=== PATIENT | female | born 1985 | race Caucasian/White ===

== ENCOUNTER → 2016-08-16 14:05 | Observation (INO) ==
--- NOTE | 2016-08-15 16:01 | General Surg History&Physical ---
History of Present Illness Patient information: Note initiated : 08/15/16 at 4:00 pm Service Date, if different from initiated Date: [] Patient: Lois Ortiz 30 y/o F admitted on 08/15/16 for Right Phneumothorax . Chief Complaint: [] HPI: Ms. Ortiz is a 30 year old F Medications and Allergies Home Medications Medication Instructions Recorded Confirmed Type Meperidine [Demerol] 50 mg PO Q4 #60 tab 07/25/16 08/12/16 Rx Promethazine [Phenergan] 25 mg PO Q4HP PRN #30 tab 07/25/16 08/12/16 Rx piperacillin-tazobactam 3.375 gram 3.375 g IV Q6H #50 ml 08/15/16 08/15/16 Rx intravenous solution Allergies Allergy/AdvReac Type Severity Reaction Status Date / Time clindamycin Allergy Severe Other Verified 08/15/16 14:58 Assessment and Plan (1) Pneumothorax, post biopsy, right Status: Acute (2) Bacterial liver abscess Status: Acute
[2016-08-15] MEDS: HYDROmorphone 2 MG/ML SYRINGE IV PRN ×3 (16:40→22:02)
[2016-08-15] MEDS: ONDANSETRON 4 MG/2 ML VIAL IV PRN ×2 (17:00→21:16)
[2016-08-15] MEDS: PIPERACILLIN SODIUM/TAZOBACTAM 3.375 GM in DEXTROSE 5% IN WATER 50 ML IV SCH ×2 (19:13→23:36)
[2016-08-15] MEDS: 0.9 % SODIUM CHLORIDE 10 ML SYRINGE IV SCH (22:05)
[2016-08-16] MEDS: HYDROmorphone 2 MG/ML SYRINGE IV PRN ×3 (01:38→10:11)
[2016-08-16] MEDS: PIPERACILLIN SODIUM/TAZOBACTAM 3.375 GM in DEXTROSE 5% IN WATER 50 ML IV SCH ×2 (05:31→11:44)
[2016-08-16] MEDS: 0.9 % SODIUM CHLORIDE 10 ML SYRINGE IV SCH (05:33)
[2016-08-16] MEDS: ONDANSETRON 4 MG/2 ML VIAL IV PRN ×2 (06:57→11:09)
--- NOTE | 2016-08-16 07:05 | XRay Report ---
CLINICAL INFORMATION: Liver abscess. Status post percutaneous drainage. The pleural space was crossed during this procedure with a very small pneumothorax. COMPARISON: Previous chest x-rays dated 08/15/2016 FINDINGS: No change in position of right-sided percutaneous drainage catheter. No detectable right pneumothorax. There is mild right basilar volume loss or infiltrate. Right hemidiaphragm is mildly elevated, unchanged. Continued radiographic follow-up recommended. Left lung is clear. IMPRESSION: 1. No right pneumothorax. 2. Mild right basilar volume loss or infiltrate. Continued follow-up recommended. Interpreted and Authenticated by: Nehemias Velasco 08/16/16
[2016-08-16 07:29] LABS: Basophils # (Auto) 0 K/mcL (0.0-0.3); Basophils % (Auto) 0.4 % (0.0-2.0); Eosinophils # (Auto) 0 K/mcL (0.0-0.7); Eosinophils % (Auto) 0.2 % (0.0-7.0); Granulocytes % (Auto) 80.9 % (38.0-78.0); Lymphocytes # (Auto) 1.6 K/mcL (1.5-4.8); Lymphocytes % (Auto) 13.3 % (15.5-49.0); Mean Cell Volume 82.4 fL (80.0-100.0); Mean Corpuscular HGB Conc 34.5 g/dL (31.0-36.0); Mean Corpuscular Hemoglobin 28.4 pg (26.0-34.0); Monocytes # (Auto) 0.6 K/mcL (0.1-0.9); Monocytes % (Auto) 5.2 % (1.0-12.0); Platelet Count 407 K/mcL (140-440); RBC 4.09 M/mcL (4.00-5.20); Red Cell Distribution Width 13.7 % (11.5-14.5)
[2016-08-16 07:40] LABS: ALT/SGPT 52 U/l (0-40); Albumin 3.5 gm/dL (3.2-5.2); Albumin/Globulin Ratio 1.2 (1.0-2.3); Alkaline Phosphatase 165 U/L (39-117); Bilirubin,Direct < 0.2 mg/dL (0.0-0.3); Blood Urea Nitrogen 11 mg/dl (6-20); Gamma Glutamyl Transpeptidase 134 U/L (5-36); Magnesium 2.4 mg/dL (1.6-2.5); Uric Acid 2.7 mg/dL (2.5-8.0)
--- NOTE | 2016-08-16 12:05 | General Surgery Progress Note ---
Subjective Patient reports: feels better, still having pain, tolerating a regular diet, nausea, afebrile Narrative: Note initiated : 08/16/16 at 12:02 pm Service Date, if different from initiated Date: [] Patient: Lois Ortiz 30 y/o F admitted on 08/15/16 for Right Phneumothorax . Chief Complaint: [PATIENT FEELS MUCH BETTER. SHE HAS MUCH LESS SPLINTING. SHE IS TAKING FULL DEEP BREATHS. HER PAIN IS BETTER CONTROLLED.] Objective Temp Pulse Resp BP Pulse Ox 98.3 F 73 16 103/80 98 08/16/16 11:21 08/16/16 03:44 08/16/16 11:21 08/16/16 11:21 08/16/16 11:21 - Additional Data Intake & Output - Last 24 hours: Intake & Output 08/14/16 08/15/16 08/16/16 08/17/16 05:59 05:59 05:59 05:59 Intake Total 400 / 400 290 / 290 Output Total 304 / 304 Balance 96 / 96 290 / 290 Weight 163 lb - General physical appearance moderate distress, moderate pain - Eyes PERRL - ENT no congestion - Neck no venous distension - Respiratory clear to auscultation, other (MILD SPLINTING ON THE RIGHT.) - Cardiovascular Cardiovascular exam: Present: normal rate and rhythm, RRR, +S1, +S2. Absent: JVD - Abdomen soft, non tender - Integumentary no rash, no growths, no abnormal pigmentation - Neurologic normal coordination, normal sensation - Musculoskeletal normal gait, normal posture - Psychiatric oriented to time, oriented to person, oriented to place, speech is normal, memory intact - Labs 08/16/16 05:55 08/16/16 05:55 Diabetes panel 08/16/16 Range/Units 05:55 Sodium 135 (133-145) mmol/L Potassium 3.9 (3.3-5.1) mmol/L Chloride 99 (96-108) mmol/L Carbon Dioxide 25 (22-30) mmol/L BUN 11 (6-20) mg/dl Creatinine 0.6 (0.6-1.1) mg/dl Glucose 106 H (70-105) mg/dL Calcium 8.6 (8.6-10.4) mg/dl AST 15 (0-37) U/l ALT 52 H (0-40) U/l Alkaline Phosphatase 165 H (39-117) U/L Total Protein 6.5 (5.9-8.4) gm/dL Albumin 3.5 (3.2-5.2) gm/dL Triglycerides 49 (<150) mg/dl Calcium panel 08/16/16 Range/Units 05:55 Calcium 8.6 (8.6-10.4) mg/dl Phosphorus 3.3 (2.7-4.5) mg/dL Albumin 3.5 (3.2-5.2) gm/dL Pituitary panel 08/16/16 Range/Units 05:55 Sodium 135 (133-145) mmol/L Potassium 3.9 (3.3-5.1) mmol/L Chloride 99 (96-108) mmol/L Carbon Dioxide 25 (22-30) mmol/L BUN 11 (6-20) mg/dl Creatinine 0.6 (0.6-1.1) mg/dl Glucose 106 H (70-105) mg/dL Calcium 8.6 (8.6-10.4) mg/dl Adrenal panel 08/16/16 Range/Units 05:55 Sodium 135 (133-145) mmol/L Potassium 3.9 (3.3-5.1) mmol/L Chloride 99 (96-108) mmol/L Carbon Dioxide 25 (22-30) mmol/L BUN 11 (6-20) mg/dl Creatinine 0.6 (0.6-1.1) mg/dl Glucose 106 H (70-105) mg/dL Calcium 8.6 (8.6-10.4) mg/dl Total Bilirubin 0.9 (0.0-1.0) mg/dL AST 15 (0-37) U/l ALT 52 H (0-40) U/l Alkaline Phosphatase 165 H (39-117) U/L Total Protein 6.5 (5.9-8.4) gm/dL Albumin 3.5 (3.2-5.2) gm/dL - Imaging Chest x-ray: report reviewed, image reviewed Assessment and Plan (1) Pneumothorax, post biopsy, right Status: Acute Assessment and plan: PATIENT IS STABLE FOR DISCHARGE WILL F/U IN THE OFFFICE ON MONDAY . Current Visit: Yes (2) Bacterial liver abscess Status: Acute Current Visit: Yes - Time Spent With Patient Total time spent is greater than 50% in coordination of care (as documented) at patient's floor/unit and/or counseling patient:
[~2016-08-16 14:05] MED LIST: 0.9 % SODIUM CHLORIDE 1,000 ML IV SCH; ACETAMINOPHEN 1,000 MG/100 ML BOTTLE IV PRN; ALPRAZolam 0.5 MG TABLET PO PRN; HYDROcodone/APAP 5/325MG TABLET PO PRN
== END | disposition home or self-care (01) ==
LOC: MEDSUR
PROVIDERS: ADMIT Family Medicine Adult Medicine; ATTEND Family Medicine Adult Medicine

== ENCOUNTER 2016-08-22 14:40 | Inpatient (IN) ==
[2016-08-22] MEDS ORDERED: ACETAMINOPHEN 325 MG TABLET PO PRN (16:00)
[2016-08-22] MEDS ORDERED: 0.9 % SODIUM CHLORIDE 1,000 ML IV SCH (16:15)
[2016-08-22] MEDS ORDERED: VANCOMYCIN 1,000 MG in 0.9 % SODIUM CHLORIDE 250 ML IV ONE (17:00)
[2016-08-22] MEDS: VANCOMYCIN 1,000 MG in 0.9 % SODIUM CHLORIDE 250 ML IV SCH (17:01)
[2016-08-22 17:12] LABS: ALT/SGPT 23 U/l (0-40); Albumin 3.6 gm/dL (3.2-5.2); Albumin/Globulin Ratio 0.9 (1.0-2.3); Alkaline Phosphatase 168 U/L (39-117); Bilirubin,Direct < 0.2 mg/dL (0.0-0.3); Blood Urea Nitrogen 3 mg/dl (6-20); C-Reactive Protein 18.9 mg/dl (0.0-0.8); Gamma Glutamyl Transpeptidase 119 U/L (5-36); Magnesium 2.2 mg/dL (1.6-2.5); Uric Acid 4.3 mg/dL (2.5-8.0)
[2016-08-22] MEDS: ONDANSETRON 4 MG/2 ML VIAL IV PRN (17:19)
[2016-08-22] MEDS: oxyCODONE/APAP 5/325MG TABLET PO PRN ×2 (17:24→20:36)
[2016-08-22] MEDS: ZOLPIDEM 5 MG TABLET PO PRN (20:37)
[2016-08-22] MEDS: FAMOTIDINE 20 MG TABLET PO SCH (20:37)
[2016-08-22] MEDS: DOCUSATE SODIUM 100 MG CAPSULE PO SCH (20:37)
[2016-08-22] MEDS: ALPRAZolam 0.5 MG TABLET PO PRN (21:29)
[2016-08-22] MEDS: 0.9 % SODIUM CHLORIDE 10 ML SYRINGE IV SCH (22:10)
[2016-08-23] MEDS: oxyCODONE/APAP 5/325MG TABLET PO PRN ×6 (05:02→23:50)
[2016-08-23] MEDS: VANCOMYCIN 1,000 MG in 0.9 % SODIUM CHLORIDE 250 ML IV SCH ×2 (05:03→18:04)
[2016-08-23] MEDS: 0.9 % SODIUM CHLORIDE 10 ML SYRINGE IV SCH ×3 (05:05→20:08)
[2016-08-23 07:01] LABS: Basophils # (Auto) 0 K/mcL (0.0-0.3); Basophils % (Auto) 0.6 % (0.0-2.0); Eosinophils # (Auto) 0.3 K/mcL (0.0-0.7); Eosinophils % (Auto) 4.6 % (0.0-7.0); Granulocytes % (Auto) 53.6 % (38.0-78.0); Lymphocytes # (Auto) 1.6 K/mcL (1.5-4.8); Lymphocytes % (Auto) 27.7 % (15.5-49.0); Mean Corpuscular HGB Conc 34.1 g/dL (31.0-36.0); Monocytes # (Auto) 0.8 K/mcL (0.1-0.9); Monocytes % (Auto) 13.5 % (1.0-12.0); Platelet Count 412 K/mcL (140-440)
--- NOTE | 2016-08-23 07:23 | XRay Report ---
CLINICAL INFORMATION: Right pleural fluid collection/empyema TECHNIQUE: AP portable semiupright chest x-ray COMPARISON: Previous chest CT scan dated 08/22/2016 FINDINGS: Large right-sided pleural-based mass. This contains some gas at the site of attempted catheter placement. Appearance is consistent with empyema although there is no air-fluid level and no fluid was obtained. Right lung base is not well-visualized due to large pleural-based abnormality Left lung is negative. Heart size and vascularity are normal. IMPRESSION: 1. Large right pleural collection. Appearance is consistent with empyema although no free fluid could be obtained. 2. Negative left lung. Interpreted and Authenticated by: Nehemias Velasco 08/23/16
[2016-08-23 07:31] LABS: ALT/SGPT 18 U/l (0-40); Albumin 3.1 gm/dL (3.2-5.2); Alkaline Phosphatase 143 U/L (39-117); Bilirubin,Direct < 0.2 mg/dL (0.0-0.3); Blood Urea Nitrogen 4 mg/dl (6-20); Gamma Glutamyl Transpeptidase 104 U/L (5-36); Magnesium 2.1 mg/dL (1.6-2.5)
[2016-08-23] MEDS: POTASSIUM CHLORIDE 20 MEQ TABLET PO SCH ×2 (09:10→19:02)
[2016-08-23] MEDS: FAMOTIDINE 20 MG TABLET PO SCH ×2 (09:10→19:02)
[2016-08-23] MEDS: ASPIRIN 81 MG TAB.CHEW CHEWED SCH (09:11)
[2016-08-23] MEDS: DOCUSATE SODIUM 100 MG CAPSULE PO SCH ×2 (09:11→19:02)
[2016-08-23] MEDS: ENOXAPARIN 40 MG/0.4 ML SYRINGE SQ SCH (09:13)
[2016-08-23] MEDS: ONDANSETRON 4 MG/2 ML VIAL IV PRN (09:36)
[2016-08-23] MEDS ORDERED: HYDROmorphone 2 MG/ML SYRINGE IV ONE ×2 (14:14→15:07)
[2016-08-23] MEDS ORDERED: LORazepam 2 MG/ML VIAL IV ONE ×2 (14:16→15:06)
[2016-08-23] MEDS ORDERED: HYDROmorphone 2 MG/ML SYRINGE ONE (15:09)
[2016-08-23] MEDS ORDERED: LORazepam 2 MG/ML VIAL ONE (15:09)
--- NOTE | 2016-08-23 16:10 | XRay Report ---
CLINICAL INFORMATION: Possible right empyema. Attempted chest tube placement TECHNIQUE: AP portable semiupright chest x-ray COMPARISON: Previous examination dated 08/23/2016 FINDINGS: Chest tube placement was attempted by Dr. Mojica. He was unable to aspirate fluid. Postprocedure chest x-ray demonstrates no detectable pneumothorax. There is persistent elevation right hemidiaphragm and pleural based soft tissue density, essentially unchanged. There is right basilar parenchymal infiltrate. Left lung remains clear IMPRESSION: 1. No right pneumothorax identified on semi upright chest x-ray 2. Persistent pleural-based density. Persistent right basilar volume loss and infiltrate Interpreted and Authenticated by: Nehemias Velasco 08/23/16
--- NOTE | 2016-08-23 16:27 | General Surgery Progress Note ---
Subjective Narrative: Note initiated : 08/23/16 at 4:24 pm Service Date, if different from initiated Date: [] Patient: Lois Ortiz 30 y/o F admitted on 08/22/16 for Empyema of the Right Chest. Chief Complaint: [Patient has had an uneventful night. She has minimal pleuritic chest pain on the right. Her oxygen saturations have been 94-96% on room air. She has good effective ventilation. Follow-up chest x-ray suggests that there is an increase in the intrapleural process on the right. There is no mediastinal shift. Discussed with the patient the need to try tube thoracostomy to try to drain the area. She is informed that there is a possibility that it cannot be drained with the tube however this would need to be tried before referring her for thoracoscopy and possible decortication. I also discussed this with her father over the telephone. They agreed to proceed with the procedure later today.] Objective Temp Pulse Resp BP Pulse Ox 99.0 F H 78 20 131/80 93 08/23/16 16:00 08/23/16 11:40 08/23/16 16:00 08/23/16 16:00 08/23/16 16:00 - Additional Data Intake & Output - Last 24 hours: Intake & Output 08/21/16 08/22/16 08/23/16 08/24/16 05:59 05:59 05:59 05:59 Intake Total 740 / 740 720 / 720 Balance 740 / 740 720 / 720 Weight 160 lb 8 oz 160 lb 8 oz - General physical appearance moderate distress, moderate pain - Respiratory other (Decreased breath sounds right lung throughout with splinting on the right ) - Cardiovascular Cardiovascular exam: Present: RRR, +S1, +S2, tachycardia. Absent: JVD - Abdomen soft, non tender - Integumentary no rash, no growths, no abnormal pigmentation - Neurologic normal coordination, normal sensation - Musculoskeletal normal gait, normal posture - Psychiatric oriented to time, oriented to person, oriented to place, speech is normal, memory intact - Labs 08/23/16 05:30 08/23/16 05:30 Diabetes panel 08/22/16 08/23/16 Range/Units 16:14 05:30 Sodium 134 138 (133-145) mmol/L Potassium 3.3 3.5 (3.3-5.1) mmol/L Chloride 95 L 99 (96-108) mmol/L Carbon Dioxide 26 24 (22-30) mmol/L BUN 3 L 4 L (6-20) mg/dl Creatinine 0.5 L 0.5 L (0.6-1.1) mg/dl Glucose 88 81 (70-105) mg/dL Calcium 9.0 8.4 L (8.6-10.4) mg/dl AST 14 11 (0-37) U/l ALT 23 18 (0-40) U/l Alkaline Phosphatase 168 H 143 H (39-117) U/L Total Protein 7.4 6.3 (5.9-8.4) gm/dL Albumin 3.6 3.1 L (3.2-5.2) gm/dL Triglycerides 92 105 (<150) mg/dl Calcium panel 08/22/16 08/23/16 Range/Units 16:14 05:30 Calcium 9.0 8.4 L (8.6-10.4) mg/dl Phosphorus 3.1 3.7 (2.7-4.5) mg/dL Albumin 3.6 3.1 L (3.2-5.2) gm/dL Pituitary panel 08/22/16 08/23/16 Range/Units 16:14 05:30 Sodium 134 138 (133-145) mmol/L Potassium 3.3 3.5 (3.3-5.1) mmol/L Chloride 95 L 99 (96-108) mmol/L Carbon Dioxide 26 24 (22-30) mmol/L BUN 3 L 4 L (6-20) mg/dl Creatinine 0.5 L 0.5 L (0.6-1.1) mg/dl Glucose 88 81 (70-105) mg/dL Calcium 9.0 8.4 L (8.6-10.4) mg/dl Adrenal panel 08/22/16 08/23/16 Range/Units 16:14 05:30 Sodium 134 138 (133-145) mmol/L Potassium 3.3 3.5 (3.3-5.1) mmol/L Chloride 95 L 99 (96-108) mmol/L Carbon Dioxide 26 24 (22-30) mmol/L BUN 3 L 4 L (6-20) mg/dl Creatinine 0.5 L 0.5 L (0.6-1.1) mg/dl Glucose 88 81 (70-105) mg/dL Calcium 9.0 8.4 L (8.6-10.4) mg/dl Total Bilirubin 0.5 0.4 (0.0-1.0) mg/dL AST 14 11 (0-37) U/l ALT 23 18 (0-40) U/l Alkaline Phosphatase 168 H 143 H (39-117) U/L Total Protein 7.4 6.3 (5.9-8.4) gm/dL Albumin 3.6 3.1 L (3.2-5.2) gm/dL - Imaging Chest x-ray: report reviewed, image reviewed Assessment and Plan (1) Empyema of right pleural space Status: Acute Assessment and plan: Patient counseled for right closed tube thoracostomy. If this is not successful will get pulmonary consult prior to referring for possible thoracoscopy and lung decortication. will continue present antibiotic regimen. Current Visit: No (2) Pyogenic hepatic abscess Status: Acute Current Visit: No (3) History of appendicitis Status: Resolved Current Visit: No - Time Spent With Patient Total time spent is greater than 50% in coordination of care (as documented) at patient's floor/unit and/or counseling patient:
--- NOTE | 2016-08-23 16:36 | General Surgery Procedure Note ---
Date of procedure: Note initiated : 08/23/16 at 4:32 pm Service Date, if different from initiated Date: [] Pre-op diagnosis: Empyema with pleural effusion right lung Post-op diagnosis: other (infiltrative process right lung without evidence of empyema) Procedure: Thoracostomy right chest without tube placement Findings: Thickened rubbery pleural surface right lung laterally and inferiorly but without pleural fluid. I was able to push the large Marianne clamp into this space but there was no fluid or purulence noted. She did not have any free air and follow-up x-rays did not show a pneumothorax. Anesthesia: local (120 cc of 1% Xylocaine local infiltration) Surgeon: Adriano Mojica Pathology: none sent Condition: stable Disposition: PACU
[2016-08-23] MEDS: ALPRAZolam 0.5 MG TABLET PO PRN (16:53)
[2016-08-23] MEDS: ZOLPIDEM 5 MG TABLET PO PRN (20:15)
--- NOTE | 2016-08-23 21:45 | Pulmonology Consult Note ---
History of Present Illness Patient information: Note initiated : 08/23/16 at 9:25 pm Service Date, if different from initiated Date: [] Patient: Lois Ortiz 30 y/o F admitted on 08/22/16 for Empyema of the Right Chest. Chief Complaint: [] History of present illness: - the patient is a pleasant 30-year-old female who presented in July with an abdominal out abnormality eventually diagnosed as appendicitis. She was taken to the operating room where an appendectomy was performed by Dr. Mojica. A drain was left in place for approximately 10 days. The drainage gradually cleared and the drain was removed at approximately the 10th day. Subsequent to that the patient developed a sense of unwellness. Imaging subsequently demonstrated the presence of what was considered to be an abscess in the right lobe of the liver. This was subjected to needle aspiration and drain placement by interventional radiology. During that procedure the patient sustained a small pneumothorax. Patient was observed and no further intervention was required in regard to the pneumothorax which resolved without other intervention. Subsequently patient with her pneumothorax and days following developed an ongoing sense of shortness of breath and pleuritic chest pain. Reimaging demonstrated the presence of a pleural process on repeat imaging appeared to be enlarging in the right hemithorax. An attempt was made by interventional radiology at needle aspiration. Despite large-bore needle utilized no material was obtained from the right pleural space. Subsequently Dr. Mojica attempted intercostal closed tube thoracostomy. He also was unable to demonstrate or produce any material from the pleural space. Despite by his report radiographic evidence of being in the proper anatomic area. The patient had received a course of Augmentin during her outpatient course and is been on vancomycin at this time. Apparently no material was cultured from her pleural space or liver aspiration. Because of the above time course and events consultation is placed pulmonary to evaluate the current situation. Patient's past medical history is significant for meningitis at age 5. She reports asthma that she "outgrew". She has not used inhalers or other medicines for asthma in many years. She reports "3 pneumonias". She reports symptomatic GERD and she is advised anti-reflux regimen (reflux and aspiration a possible cause of frequent pneumonias). The record indicates allergy to clindamycin. The patient reports passing gas and some small bowel movements despite small oral intake. She has had a vague sense of low-grade fever no chills. She has had variable ongoing nausea. She denies cough or purulent sputum production. She denies calf or leg pain. System review is negative on questioning for additional focus of abnormality. On physical examination the patient is a pleasant nontoxic appearing 30-year- old female She is in no acute distress. Head is atraumatic and normocephalic. Eyes PERRLA EOMI. Neck supple.. CHEST: Examination of the chest demonstrates aeration without wheeze rale or rhonchi on the left side of the thorax. There is decreased breath sounds on the right with dullness to percussion over large area posteriorly and laterally in the right hemithorax. The heart is regular S1-S2 no gallop rub jugular venous distention or edema. The abdomen is soft bowel sounds are present decreased no apparent mass or organomegaly; Minimal postoperative tenderness. Bones joints and extremities are intact. Homans sign is negative Neurologic exam is grossly nonfocal. Impression 30-year-old female with appendicitis which lead to seeding of a liver abscess. Subsequent drainage attempt of the liver abscess unfortunately interacting with the right pleural space leading to contamination of that space and large reactive pleural process which appears to be likely infectious but material gelatinous in nature accumulated. Recommendations: Given the size of the pleural process and the concern for lung entrapment, I would recommend that the patient have here or as necessary be transferred to have thoracoscopic or more open (as necessary) right pleural exploration to avoid lung entrapment. Given the probable source of this process I would recommend that consideration be given to Zosyn as an antibiotic in order to cover more broadly for anaerobes and aerobic enteric bacteria. Thank you for the opportunity to participate in the care of this pleasant young lady. Edmund Rubin MD Pulmonary Diseases Medications and Allergies Home Medications Medication Instructions Recorded Confirmed Type Amoxicillin/Potassium Clav 875 mg PO Q12H #60 tab 08/16/16 08/22/16 Rx [Augmentin] Meperidine [Demerol] 50 mg PO Q4HP PRN #60 tab 08/16/16 08/22/16 Rx Promethazine [Phenergan] 25 mg PO Q4HP PRN #60 tab 08/16/16 08/22/16 Rx Allergies Allergy/AdvReac Type Severity Reaction Status Date / Time clindamycin Allergy Severe Other Verified 08/22/16 11:27 Physical Examination Vital signs: Temp Pulse Resp BP Pulse Ox 99.8 F H 100 H 28 H 115/75 94 08/23/16 19:26 08/23/16 19:26 08/23/16 19:26 08/23/16 19:26 08/23/16 19:26 Results - Laboratory Findings CBC and BMP: 08/23/16 05:30 08/23/16 05:30 Abnormal lab findings: Abnormal Labs 08/22/16 08/23/16 08/23/16 16:14 05:30 05:30 Hgb 11.2 L Hct 32.8 L Hardy % (Auto) 13.5 H Chloride 95 L BUN 3 L 4 L Creatinine 0.5 L 0.5 L Calcium 8.4 L GGT 119 H 104 H Alkaline Phosphatase 168 H 143 H C-Reactive Protein 18.9 H Albumin 3.1 L Globulin 3.8 H Albumin/Globulin Ratio 0.9 L
[2016-08-24] MEDS: oxyCODONE/APAP 5/325MG TABLET PO PRN ×3 (04:04→17:34)
[2016-08-24] MEDS: ALPRAZolam 0.5 MG TABLET PO PRN ×3 (04:08→19:06)
[2016-08-24] MEDS: VANCOMYCIN 1,000 MG in 0.9 % SODIUM CHLORIDE 250 ML IV SCH ×2 (05:14→17:57)
[2016-08-24] MEDS: 0.9 % SODIUM CHLORIDE 10 ML SYRINGE IV SCH ×3 (05:15→19:07)
[2016-08-24 07:26] LABS: ALT/SGPT 18 U/l (0-40); Albumin 2.7 gm/dL (3.2-5.2); Albumin/Globulin Ratio 0.8 (1.0-2.3); Alkaline Phosphatase 141 U/L (39-117); Bilirubin,Direct < 0.2 mg/dL (0.0-0.3); Blood Urea Nitrogen 4 mg/dl (6-20); Gamma Glutamyl Transpeptidase 105 U/L (5-36); Magnesium 1.9 mg/dL (1.6-2.5); Uric Acid 2.5 mg/dL (2.5-8.0)
[2016-08-24] MEDS: POTASSIUM CHLORIDE 20 MEQ TABLET PO SCH ×2 (07:56→17:56)
--- NOTE | 2016-08-24 07:59 | XRay Report ---
CLINICAL INFORMATION: Right empyema TECHNIQUE: AP portable semierect chest x-ray COMPARISON: 08/23/2016 FINDINGS: No interval change. Persistent extra pulmonary density in the right hemithorax. Although aspiration is been unsuccessful this is consistent with an empyema. Left lung is clear without focal pulmonary infiltrate. Heart size and vascularity are normal IMPRESSION: No interval change since 08/23/2016 Interpreted and Authenticated by: Nehemias Velasco 08/24/16
[2016-08-24 08:46] LABS: Basophils # (Auto) 0 K/mcL (0.0-0.3); Basophils % (Auto) 0.6 % (0.0-2.0); Eosinophils # (Auto) 0.2 K/mcL (0.0-0.7); Eosinophils % (Auto) 2.7 % (0.0-7.0); Granulocytes % (Auto) 65.7 % (38.0-78.0); Lymphocytes # (Auto) 1.4 K/mcL (1.5-4.8); Lymphocytes % (Auto) 22.2 % (15.5-49.0); Mean Corpuscular HGB Conc 33.1 g/dL (31.0-36.0); Mean Corpuscular Hemoglobin 27.4 pg (26.0-34.0); Monocytes # (Auto) 0.6 K/mcL (0.1-0.9); Monocytes % (Auto) 8.8 % (1.0-12.0); Platelet Count 457 K/mcL (140-440); RBC 4.38 M/mcL (4.00-5.20); Red Cell Distribution Width 14.1 % (11.5-14.5)
[2016-08-24] MEDS: FAMOTIDINE 20 MG TABLET PO SCH ×2 (09:15→19:06)
[2016-08-24] MEDS: ENOXAPARIN 40 MG/0.4 ML SYRINGE SQ SCH (09:15)
[2016-08-24] MEDS: DOCUSATE SODIUM 100 MG CAPSULE PO SCH (09:16)
[2016-08-24] MEDS: ASPIRIN 81 MG TAB.CHEW CHEWED SCH (09:16)
[2016-08-24] MEDS: PIPERACILLIN SODIUM/TAZOBACTAM 3.375 GM in DEXTROSE 5% IN WATER 50 ML IV SCH ×2 (12:31→17:56)
--- NOTE | 2016-08-24 12:54 | General Surgery Progress Note ---
Subjective Patient reports: pain is less, shortness of breath, afebrile Narrative: Note initiated : 08/24/16 at 12:51 pm Service Date, if different from initiated Date: [] Patient: Lois Ortiz 30 y/o F admitted on 08/22/16 for Empyema of the Right Chest. Chief Complaint: [Patient is doing about the same. She has slightly more tachypnea and her oxygen saturation on room air is 86-88%. On 2 L her oxygen saturation is 94-96%. She has less pleuritic pain. Her chest x-ray this morning shows slightly enlarged pleural reaction in the right lung field. She has remained afebrile and her white blood count is normal. She has no other complaints. The situation was discussed with the principal secretary who agrees that she probably will need a VATS procedure with lung decortication to prevent a trapped lung. I discussed this with the patient and her family and will try to arrange for transfer to a facility that has thoracic surgery. Hopefully we can get her transferred today.] Objective Temp Pulse Resp BP Pulse Ox 98.5 F 104 H 24 H 112/81 97 08/24/16 08:00 08/24/16 07:55 08/24/16 08:00 08/24/16 08:00 08/24/16 08:00 - Additional Data Intake & Output - Last 24 hours: Intake & Output 08/22/16 08/23/16 08/24/16 08/25/16 05:59 05:59 05:59 05:59 Intake Total 740 / 740 1320 / 1320 800 / 800 Balance 740 / 740 1320 / 1320 800 / 800 Weight 160 lb 8 oz 160 lb - Neck no masses, no bruits, trachea midline, no lymphadectomy, no venous distension - Respiratory other (Decreased breath sounds right lung field otherwise unremarkable no pleural rub) - Cardiovascular Cardiovascular exam: Present: +S1, +S2, tachycardia. Absent: JVD - Abdomen non tender, bowel sounds (present), surgical scars (none), masses (none) - Integumentary no rash, no growths, no abnormal pigmentation - Neurologic normal coordination, normal sensation - Musculoskeletal normal gait, normal posture - Psychiatric oriented to time, oriented to person, oriented to place, speech is normal, memory intact - Labs 08/24/16 08:05 08/24/16 05:55 Diabetes panel 08/24/16 Range/Units 05:55 Sodium 137 (133-145) mmol/L Potassium 4.1 (3.3-5.1) mmol/L Chloride 101 (96-108) mmol/L Carbon Dioxide 20 L (22-30) mmol/L BUN 4 L (6-20) mg/dl Creatinine 0.5 L (0.6-1.1) mg/dl Glucose 81 (70-105) mg/dL Calcium 8.4 L (8.6-10.4) mg/dl AST 15 (0-37) U/l ALT 18 (0-40) U/l Alkaline Phosphatase 141 H (39-117) U/L Total Protein 5.9 (5.9-8.4) gm/dL Albumin 2.7 L (3.2-5.2) gm/dL Triglycerides 84 (<150) mg/dl Calcium panel 08/24/16 Range/Units 05:55 Calcium 8.4 L (8.6-10.4) mg/dl Phosphorus 3.9 (2.7-4.5) mg/dL Albumin 2.7 L (3.2-5.2) gm/dL Pituitary panel 08/24/16 Range/Units 05:55 Sodium 137 (133-145) mmol/L Potassium 4.1 (3.3-5.1) mmol/L Chloride 101 (96-108) mmol/L Carbon Dioxide 20 L (22-30) mmol/L BUN 4 L (6-20) mg/dl Creatinine 0.5 L (0.6-1.1) mg/dl Glucose 81 (70-105) mg/dL Calcium 8.4 L (8.6-10.4) mg/dl Adrenal panel 08/24/16 Range/Units 05:55 Sodium 137 (133-145) mmol/L Potassium 4.1 (3.3-5.1) mmol/L Chloride 101 (96-108) mmol/L Carbon Dioxide 20 L (22-30) mmol/L BUN 4 L (6-20) mg/dl Creatinine 0.5 L (0.6-1.1) mg/dl Glucose 81 (70-105) mg/dL Calcium 8.4 L (8.6-10.4) mg/dl Total Bilirubin 0.4 (0.0-1.0) mg/dL AST 15 (0-37) U/l ALT 18 (0-40) U/l Alkaline Phosphatase 141 H (39-117) U/L Total Protein 5.9 (5.9-8.4) gm/dL Albumin 2.7 L (3.2-5.2) gm/dL Assessment and Plan (1) Empyema of right pleural space Status: Acute Assessment and plan: try to arrange for transfer for VATS procedure and right lung decortication . Current Visit: No (2) Pyogenic hepatic abscess Status: Acute Current Visit: No (3) History of appendicitis Status: Resolved Current Visit: No - Time Spent With Patient Total time spent is greater than 50% in coordination of care (as documented) at patient's floor/unit and/or counseling patient:
--- NOTE | 2016-08-24 13:08 | Discharge Summary ---
Providers - Providers Patient information: Note initiated : 08/24/16 at 1:01 pm Service Date, if different from initiated Date: [] Patient: Lois Ortiz 30 y/o F admitted on 08/22/16 for Empyema of the Right Chest. Chief Complaint: [] Date of admission: 08/22/16 Discharge date: 08/24/16 Attending physician: Adriano Mojica Pulmonology consult Interventional radiology Hospitalization Hospital course: 30-year-old female who was admitted with a large right pleural effusion and possible empyema. The patient initially presented in July with acute appendicitis. She underwent laparoscopic appendectomy on 24 July for acute separative appendicitis. She had laparoscopic appendectomy and drainage of her pelvis. Her drain was removed on 04 August. Over the next few days she developed right sided flank and chest pain. She had a CT of the abdomen and pelvis done on 15 August and was found to have a hepatic abscess in the right posterior lateral liver. Percutaneous drainage of the hepatic abscess was done. She had a very small less than 5% pneumothorax which was simply observed. She did well and the pneumothorax resolved. She was discharged home on 16 August on Augmentin. The cultures from the 15 August drainage procedure never received the labs of the causative organism was never identified. On the morning of admission she presented with worsening right chest pain and a follow- up CT showed a developing right pleural effusion suggestive of empyema. The radiologist elected to do percutaneous drainage of the empyema however drainage was unsuccessful even though he had large needle and was under the center of the suspected fluid process in the right lung. Follow-up chest x-ray did not show pneumothorax but showed small collection of air in the central portion of this inflammatory process. On yesterday I attempted to place a large chest tube. I was able to get access to the pleural cavity but that there was no fluid drained. To confirm my position I took a large Marianne clamp and placed a full length into her pleural space and got radiographic confirmation that I was not a central portion of this process in her lung. To radiographs were taken and the radiologist confirmed the position. There was never any air leak and there was never any fluid drainage. Follow-up x-ray at the completion of this procedure did not reveal a pneumothorax. Follow-up x-ray this morning shows the process and collection to be increasing. She was seen by pulmonology last evening and he agrees that she probably will need to have a VATS procedure with right lung decortication to prevent trapped lung syndrome. We will try to make arrangements for transfer as soon as possible. Discharge diagnosis: Right lung empyema with multiple loculations Secondary discharge diagnosis: History of right hepatic pyogenic abscess History of acute appendicitis Reason for admission: Right pleural effusion with empyema Procedures: Percutaneous drainage right sided empyema Attempted right closed tube thoracostomy Pertinent studies/significant findings: CT of abdomen and chest Complications: None Exam Temp Pulse Resp BP Pulse Ox 98.5 F 104 H 24 H 112/81 97 08/24/16 08:00 08/24/16 07:55 08/24/16 08:00 08/24/16 08:00 08/24/16 08:00 - General physical appearance well developed, well nourished, no distress - Eyes PERRL, normal ocular movement - ENT normal pinna, normal nares, normal mucosa, no hearing loss, no congestion - Head Head exam IM: Present: atraumatic, normocephalic - Neck no masses, no bruits, trachea midline, no lymphadectomy, no venous distension - Cardiovascular Cardiovascular exam IM: Present: normal rate and rhythm - Respiratory other (Decreased air movement right lung except for right apex; normal full expansion left lung no pleural rub;) - Abdomen Abdomen: Present: soft, non tender, bowel sounds Hernia: Present: none - Integumentary Present: no rash, no growths, no abnormal pigmentation - Neurologic Present: normal coordination, normal sensation - Musculoskeletal Present: normal gait, normal posture - Psychiatric Present: oriented to time, oriented to person, oriented to place, speech is normal, memory intact Discharge Plan - Patient/Caregiver Discharge Instructions Activity: as instructed Diet: Regular Diet (This disposition) - Follow up Plan Disposition: [facility] Prognosis: Good Rehab Potential: Good I certify that the patient requires SNF services.: No Overall status at discharge: patient is not back to baseline Pending Studies Resuscitation Status Full Code Diet Regular Diet Start MonAug 22 Dinner Acetaminophen (Tylenol) 650 mg PO Q6HP PRN PRN Reason: PAIN/FEVER > 101 Last Admin: 08/23/16 20:15 Dose: 650 mg Alprazolam (Xanax) 0.5 mg PO TIDP PRN PRN Reason: Anxiety Last Admin: 08/24/16 09:22 Dose: 0.5 mg Admin: 08/24/16 04:08 Dose: 0.5 mg Admin: 08/23/16 16:53 Dose: 0.5 mg Admin: 08/22/16 21:29 Dose: 0.5 mg Aspirin (Aspirin) 81 mg CHEWED DAILY [facility] Last Admin: 08/24/16 09:16 Dose: 81 mg Admin: 08/23/16 09:11 Dose: 81 mg Docusate Sodium (Colace) 100 mg PO BID [facility] Last Admin: 08/24/16 09:16 Dose: 100 mg Admin: 08/23/16 19:02 Dose: 100 mg Admin: 08/23/16 09:11 Dose: 100 mg Admin: 08/22/16 20:37 Dose: 100 mg Enoxaparin Sodium (Lovenox) 40 mg SQ DAILY [facility] Last Admin: 08/24/16 09:15 Dose: 40 mg Admin: 08/23/16 09:13 Dose: 40 mg Famotidine (Pepcid) 20 mg PO BID [facility] Last Admin: 08/24/16 09:15 Dose: 20 mg Admin: 08/23/16 19:02 Dose: 20 mg Admin: 08/23/16 09:10 Dose: 20 mg Admin: 08/22/16 20:37 Dose: 20 mg Vancomycin HCl 1,000 mg/ (Sodium Chloride) 250 mls @ 250 mls/hr IV Q12H [facility] Last Admin: 08/24/16 05:14 Dose: 250 mls/hr Infusion: 08/23/16 19:05 Dose: 250 mls/hr Admin: 08/23/16 18:04 Dose: 250 mls/hr Infusion: 08/23/16 06:03 Dose: 250 mls/hr Admin: 08/23/16 05:03 Dose: 250 mls/hr Infusion: 08/22/16 22:10 Dose: 250 mls/hr Admin: 08/22/16 17:01 Dose: 250 mls/hr Piperacillin Sod/Tazobactam (Sod 3.375 gm/ Dextrose) 50 mls @ 100 mls/hr IV Q6H [facility] Last Admin: 08/24/16 12:31 Dose: 100 mls/hr Ondansetron HCl (Zofran) 4 mg IV Q6HP PRN PRN Reason: Nausea And Vomiting Last Admin: 08/23/16 09:36 Dose: 4 mg Admin: 08/22/16 17:19 Dose: 4 mg Oxycodone/Acetaminophen (Percocet 5-325 Mg) 1 tab PO Q4HP PRN PRN Reason: Pain Last Admin: 08/24/16 07:55 Dose: 1 tab Admin: 08/24/16 04:04 Dose: 1 tab Admin: 08/23/16 23:50 Dose: 1 tab Admin: 08/23/16 18:02 Dose: 1 tab Admin: 08/23/16 09:12 Dose: 1 tab Admin: 08/23/16 05:02 Dose: 1 tab Admin: 08/23/16 00:00 Dose: 1 tab Admin: 08/22/16 20:36 Dose: 1 tab Admin: 08/22/16 17:24 Dose: 1 tab Potassium Chloride (Kdur) 40 meq PO BIDCC [facility] Last Admin: 08/24/16 07:56 Dose: 40 meq Admin: 08/23/16 19:02 Dose: 40 meq Admin: 08/23/16 09:10 Dose: 40 meq Sodium Chloride (Saline Flush) 10 ml IV Q8 [facility] Last Admin: 08/24/16 05:15 Dose: Admin: 08/23/16 20:08 Dose: Admin: 08/23/16 13:40 Dose: 10 ml Admin: 08/23/16 05:05 Dose: Not Given Admin: 08/22/16 22:10 Dose: 10 ml Zolpidem Tartrate (Ambien) 5 mg PO HSP PRN PRN Reason: Insomnia Last Admin: 08/23/16 20:15 Dose: 5 mg Admin: 08/22/16 20:37 Dose: 5 mg Shift Summary 08/24/16 04:13 (created 08/24/16 03:50) Shift Summary by Tena Dhillon Pt A&O, up ad diandra in room. c/o right side pain from previous chest tube insertions. had a kadi drain DCed yesterday. Had continuous pulse ox on all night, O2 around 94% on RA, can use O2 if needed, HR elevated d/t anxiety at times. Medicated with Oxycodone x2 and tylenol x1. Had low grade fever at 2000 of 99.8. Encouraged to use IS. Dr. Rubin in to see pt at 2130 for consult. Per MD report, pt may need to be transported out for a thoracoscopic procedure d /t the concern for lung entrapment. Patient continues to have diminished lung sounds to right side. Has prn xanax for anxiety given at 0400. Pt states that breathing for her just feels "off" or different but pt has not been very SOB. IV to right wrist @TKO. Initialized on 08/24/16 03:50 - END OF NOTE
--- NOTE | 2016-08-24 13:26 | Discharge Summary ---
Providers - Providers Patient information: Note initiated : 08/24/16 at 1:00 pm Service Date, if different from initiated Date: [] Patient: Lios Ortiz 30 y/o F admitted on 08/22/16 for Empyema of the Right Chest. Chief Complaint: [] Date of admission: 08/22/16 Discharge date: 08/24/16 Attending physician: Adriano Mojica Exam Temp Pulse Resp BP Pulse Ox 98.5 F 104 H 24 H 112/81 97 08/24/16 08:00 08/24/16 07:55 08/24/16 08:00 08/24/16 08:00 08/24/16 08:00 Pending Studies Resuscitation Status Full Code Diet Regular Diet Start MonAug 22 Dinner Acetaminophen (Tylenol) 650 mg PO Q6HP PRN PRN Reason: PAIN/FEVER > 101 Last Admin: 08/23/16 20:15 Dose: 650 mg Alprazolam (Xanax) 0.5 mg PO TIDP PRN PRN Reason: Anxiety Last Admin: 08/24/16 09:22 Dose: 0.5 mg Admin: 08/24/16 04:08 Dose: 0.5 mg Admin: 08/23/16 16:53 Dose: 0.5 mg Admin: 08/22/16 21:29 Dose: 0.5 mg Aspirin (Aspirin) 81 mg CHEWED DAILY [facility] [place] Last Admin: 08/24/16 09:16 Dose: 81 mg Admin: 08/23/16 09:11 Dose: 81 mg Docusate Sodium (Colace) 100 mg PO BID [facility] [place] Last Admin: 08/24/16 09:16 Dose: 100 mg Admin: 08/23/16 19:02 Dose: 100 mg Admin: 08/23/16 09:11 Dose: 100 mg Admin: 08/22/16 20:37 Dose: 100 mg Enoxaparin Sodium (Lovenox) 40 mg SQ DAILY [facility] [place] Last Admin: 08/24/16 09:15 Dose: 40 mg Admin: 08/23/16 09:13 Dose: 40 mg Famotidine (Pepcid) 20 mg PO BID [facility] [place] Last Admin: 08/24/16 09:15 Dose: 20 mg Admin: 08/23/16 19:02 Dose: 20 mg Admin: 08/23/16 09:10 Dose: 20 mg Admin: 08/22/16 20:37 Dose: 20 mg Vancomycin HCl 1,000 mg/ (Sodium Chloride) 250 mls @ 250 mls/hr IV Q12H [facility] [place] Last Admin: 08/24/16 05:14 Dose: 250 mls/hr Infusion: 08/23/16 19:05 Dose: 250 mls/hr Admin: 08/23/16 18:04 Dose: 250 mls/hr Infusion: 08/23/16 06:03 Dose: 250 mls/hr Admin: 08/23/16 05:03 Dose: 250 mls/hr Infusion: 08/22/16 22:10 Dose: 250 mls/hr Admin: 08/22/16 17:01 Dose: 250 mls/hr Piperacillin Sod/Tazobactam (Sod 3.375 gm/ Dextrose) 50 mls @ 100 mls/hr IV Q6H [facility] [place] Last Admin: 08/24/16 12:31 Dose: 100 mls/hr Ondansetron HCl (Zofran) 4 mg IV Q6HP PRN PRN Reason: Nausea And Vomiting Last Admin: 08/23/16 09:36 Dose: 4 mg Admin: 08/22/16 17:19 Dose: 4 mg Oxycodone/Acetaminophen (Percocet 5-325 Mg) 1 tab PO Q4HP PRN PRN Reason: Pain Last Admin: 08/24/16 07:55 Dose: 1 tab Admin: 08/24/16 04:04 Dose: 1 tab Admin: 08/23/16 23:50 Dose: 1 tab Admin: 08/23/16 18:02 Dose: 1 tab Admin: 08/23/16 09:12 Dose: 1 tab Admin: 08/23/16 05:02 Dose: 1 tab Admin: 08/23/16 00:00 Dose: 1 tab Admin: 08/22/16 20:36 Dose: 1 tab Admin: 08/22/16 17:24 Dose: 1 tab Potassium Chloride (Kdur) 40 meq PO BIDCC [facility] [place] Last Admin: 08/24/16 07:56 Dose: 40 meq Admin: 08/23/16 19:02 Dose: 40 meq Admin: 08/23/16 09:10 Dose: 40 meq Sodium Chloride (Saline Flush) 10 ml IV Q8 [facility] [place] Last Admin: 08/24/16 05:15 Dose: Admin: 08/23/16 20:08 Dose: Admin: 08/23/16 13:40 Dose: 10 ml Admin: 08/23/16 05:05 Dose: Not Given Admin: 08/22/16 22:10 Dose: 10 ml Zolpidem Tartrate (Ambien) 5 mg PO HSP PRN PRN Reason: Insomnia Last Admin: 08/23/16 20:15 Dose: 5 mg Admin: 08/22/16 20:37 Dose: 5 mg Shift Summary 08/24/16 04:13 (created 08/24/16 03:50) Shift Summary by Tena Dhillon Pt A&O, up ad diandra in room. c/o right side pain from previous chest tube insertions. had a kadi drain DCed yesterday. Had continuous pulse ox on all night, O2 around 94% on RA, can use O2 if needed, HR elevated d/t anxiety at times. Medicated with Oxycodone x2 and tylenol x1. Had low grade fever at 2000 of 99.8. Encouraged to use IS. Dr. Rubin in to see pt at 2130 for consult. Per MD report, pt may need to be transported out for a thoracoscopic procedure d /t the concern for lung entrapment. Patient continues to have diminished lung sounds to right side. Has prn xanax for anxiety given at 0400. Pt states that breathing for her just feels "off" or different but pt has not been very SOB. IV to right wrist @TKO. Initialized on 08/24/16 03:50 - END OF NOTE
[2016-08-24] MEDS: ONDANSETRON 4 MG/2 ML VIAL IV PRN (14:05)
[2016-08-24] MEDS ORDERED: VANCOMYCIN 1,500 MG in 0.9 % SODIUM CHLORIDE 500 ML IV SCH (18:00)
== END 2016-08-24 19:26 | disposition short-term general hospital (02) | DRG 166 ==
LOC: MEDSUR 15:22
PROVIDERS: ADMIT Family Medicine Adult Medicine; ATTEND Family Medicine Adult Medicine